=== PATIENT | female | born 1995 ===

== ENCOUNTER 2017-07-09 01:49 | Emergency (ER) | payer SELFPAY ==
[2017-07-09 02:03] VITALS: BP 110/70; PULSE 77; RESP 16; TEMP 98; O2SAT 100
--- NOTE | 2017-07-09 02:59 | ED PDOC ---
HPI: CCC, URI, Sore Throat Time Seen by Provider: 07/09/17 02:01 Chief Complaint (Nursing): ENT Problem Chief Complaint (Provider): Sore Throat History Per: Patient History/Exam Limitations: no limitations Have you had recent travel within the past 21 days to any of the following countries: [place], [place], [place] or [place]?: No Onset/Duration Of Symptoms: Days (4) Current Symptoms Are (Timing): Still Present Location Of Pain: Throat Sick Contacts (Context): None Associated Symptoms: Sore Throat. denies: Fever, Chills, Cough, Sputum, Neck Pain, Sinus Drainage, Myalgias, Nasal Congestion, Nausea, Vomiting, Diarrhea Severity: Moderate Additional History Per: Patient Additional Complaint(s): 21 y/o female complaining of right sided throat pain for the last 4 days. No fever, chills, or other complaint. She reports a history of right sided salivary duct stone years 10 years ago, and would like a referral to ENT. Past Medical History Vital Signs: Last Vital Signs Temp 98.0 F 07/09/17 02:01 Pulse 77 07/09/17 02:01 Resp 16 07/09/17 02:01 BP 110/70 07/09/17 02:01 Pulse Ox 100 07/09/17 02:01 - Medical History PMH: No Chronic Diseases - Surgical History Surgical History: No Surg Hx - Family History Family History: States: Unknown Family Hx - Social History Current smoker - smoking cessation education provided: No Ex-Smoker (has not smoked in the last 12 months): No Alcohol: None Drugs: Denies - Home Medications Home Medications: Ambulatory Orders Medication Instructions Recorded Guaifenesin/Pseudoephedrne HCl 1 tab PO DAILY PRN #30 ter 10/09/14 [Mucinex D 600 mg-60 mg] Ibuprofen [Motrin] 600 mg PO Q6 PRN #10 tab 10/09/14 Benzocaine/Menthol [Cepacol Sore 1 kristine MM DAILY #12 kristine 07/09/17 Throat] Ibuprofen [Motrin Tab] 600 mg PO Q6 #30 tab 07/09/17 - Allergies Allergies/Adverse Reactions: Allergies Allergy/AdvReac Type Severity Reaction Status Date / Time No Known Allergies Allergy Unverified 10/09/14 12:26 Review of Systems ROS Statement: Except As Marked, All Systems Reviewed And Found Negative ENT: Positive for: Throat Pain Physical Exam - Reviewed Nursing Documentation Reviewed: Yes Vital Signs Reviewed: Yes - Physical Exam Appears: Positive for: Well, Non-toxic, No Acute Distress Head Exam: Positive for: ATRAUMATIC, NORMAL INSPECTION, NORMOCEPHALIC Skin: Positive for: Normal Color, Warm, DRY Eye Exam: Positive for: EOMI, Normal appearance, PERRL ENT: Positive for: Normal ENT Inspection Neck: Positive for: Normal, Painless ROM Cardiovascular/Chest: Positive for: Regular Rate, Rhythm Respiratory: Positive for: CNT, Normal Breath Sounds Gastrointestinal/Abdominal: Positive for: Normal Exam, Bowel Sounds, Soft Back: Positive for: Normal Inspection Extremity: Positive for: Normal ROM Neurologic/Psych: Positive for: Alert, Oriented - ECG O2 Sat by Pulse Oximetry: 100 (RA) Pulse Ox Interpretation: Normal Medical Decision Making Medical Decision Making: Impression: 21 y/o female complaining of sore throat Plan: - Rapid Strep - Toradol and Decadron Rapid strep is negative. On reevaluation her pain is improved and she is comfortable going home. Patient given referral for ENT. Scribe Attestation Documented by Roxanne Yu acting as a scribe for Dr. Ray Mei. Provider Attestation: All medical record entries made by the Scribe were at my direction and personally dictated by me. I have reviewed the chart and agree that the record accurately reflects my personal performance of the history, physical exam, medical decision making, and the department course for this patient. I have also personally directed, reviewed, and agree with the discharge instructions and disposition. Disposition - Clinical Impression Clinical Impression: Throat pain - Patient ED Disposition Is Patient to be Admitted: No Doctor Will See Patient In The: Office Counseled Patient/Family Regarding: Studies Performed, Diagnosis, Need For Followup - Disposition Referrals: Brien Hoffmann MD [Staff Provider] - Disposition: Routine/Home Disposition Time: 02:45 Condition: STABLE Prescriptions: Benzocaine/Menthol [Cepacol Sore Throat] 1 kristine MM DAILY #12 kristine Ibuprofen [Motrin Tab] 600 mg PO Q6 #30 tab Instructions: Pharyngitis (ED) Forms: [employer] (Japanese)
== END 2017-07-09 03:02 | disposition home or self-care (01) ==
LOC: H.ER 01:49
DX: J02.9 Acute pharyngitis, unspecified (principal); Z87.891 Personal history of nicotine dependence
CPT/HCPCS: 81025; 87070; 87430; 96372; 99281; J1885; J8540

== ENCOUNTER 2017-10-21 13:07 | Emergency (ER) | payer MEDICAID ==
[2017-10-21 13:16] VITALS: BP 114/69; PULSE 93; RESP 18; TEMP 97; O2SAT 100
[2017-10-21] MEDS ORDERED: Naproxen 500 MG TAB PO STA (13:27)
--- NOTE | 2017-10-21 13:50 | ED PDOC ---
Upper Extremity Pain/Injury Time Seen by Provider: 10/21/17 13:17 Chief Complaint (Nursing): Upper Extremity Problem/Injury Chief Complaint (Provider): Upper Extremity Problem/Injury History Per: Patient History/Exam Limitations: no limitations Onset/Duration Of Symptoms: Days (x2 weeks) Current Symptoms Are (Timing): Still Present Additional Complaint(s): Nikki Jc is a 21 year old right hand dominant female with no significant past medical history, who presents to the ED complaining of left sided shoulder pain x2 weeks. Patient states she was lifting a heavy box at the [employer] where she works when she initially felt the pain. Patient states pain is only present upon movement and lifting objects, and denies any pain at rest. She describes the pain as shock-like and shooting, and notes when she feels it, it feels as though it shoots across her left shoulder blade when lifting heavy objects. She also notes increased pain when turning head to the right. Denies paresthesias. States she continued working the last 2 weeks and took Motrin 2 days ago without relief. LNMP 20 days ago. PMD: Non-CP Provider Past Medical History Reviewed: Historical Data, Nursing Documentation, Vital Signs Vital Signs: Last Vital Signs Temp 97 F L 10/21/17 13:14 Pulse 93 H 10/21/17 13:14 Resp 18 10/21/17 13:14 BP 114/69 10/21/17 13:14 Pulse Ox 100 10/21/17 13:14 - Medical History PMH: No Chronic Diseases - Family History Family History: States: Unknown Family Hx - Home Medications Home Medications: Ambulatory Orders Medication Instructions Recorded Guaifenesin/Pseudoephedrne HCl 1 tab PO DAILY PRN #30 ter 10/09/14 [Mucinex D 600 mg-60 mg] Ibuprofen [Motrin] 600 mg PO Q6 PRN #10 tab 10/09/14 Benzocaine/Menthol [Cepacol Sore 1 kristine MM DAILY #12 kristine 07/09/17 Throat] Ibuprofen [Motrin Tab] 600 mg PO Q6 #30 tab 07/09/17 Cyclobenzaprine [Cyclobenzaprine 5 mg PO TID #15 tab 10/21/17 HCl] Naproxen [Naprosyn] 500 mg PO BID PRN #20 tablet 10/21/17 - Allergies Allergies/Adverse Reactions: Allergies Allergy/AdvReac Type Severity Reaction Status Date / Time No Known Allergies Allergy Verified 10/21/17 13:14 Review of Systems Musculoskeletal: Positive for: Shoulder Pain (left) Neurological: Negative for: Numbness Physical Exam - Reviewed Nursing Documentation Reviewed: Yes Vital Signs Reviewed: Yes - Physical Exam Appears: Positive for: Well, Non-toxic, No Acute Distress Head Exam: Positive for: ATRAUMATIC Skin: Positive for: Normal Color. Negative for: Rash Eye Exam: Positive for: Normal appearance Extremity: Positive for: Normal ROM (Full AROM and PROM of left shoulder, (+) pain with resisted elevation of arm. ), Tenderness (Reproducible point tenderness over left shoulder blade). Negative for: Deformity, Swelling Neurologic/Psych: Positive for: Alert, Oriented (x3) - ECG O2 Sat by Pulse Oximetry: 100 (RA) Pulse Ox Interpretation: Normal Medical Decision Making Medical Decision Making: Time: 13:26 Initial Impression: Shoulder pain, consider muscle strain Plan: --X-Ray Shoulder left --Flexeril 5 mg PO --Naproxen 500 mg PO --Reevaluation Time: 13:49 --Patient refused shoulder X-Ray and medication as she states she needs to leave. --Upon provider evaluation patient is medically stable, and requires no further treatment in the ED at this time. Patient will be discharged home with Rx for Cyclobenzaprine and Naproxen. Counseling was provided and all questions were answered regarding diagnosis and need for follow up with PMD/Clinic, or Dr. Pizarro-Orthopedic. There is agreement to discharge plan. Return if symptoms persist or worsen. Scribe Attestation: Documented by Talat Fitch, acting as a scribe for Marian Diaz PA-C Provider Scribe Attestation: All medical record entries made by the Scribe were at my direction and personally dictated by me. I have reviewed the chart and agree that the record accurately reflects my personal performance of the history, physical exam, medical decision making, and the department course for this patient. I have also personally directed, reviewed, and agree with the discharge instructions and disposition. Disposition - Clinical Impression Clinical Impression: Shoulder pain, left - Patient ED Disposition Is Patient to be Admitted: No Counseled Patient/Family Regarding: Diagnosis, Need For Followup, Rx Given - Disposition Referrals: Km Pizarro MD [Medical Doctor] - [facility] [Outside] Disposition: Routine/Home Disposition Time: 13:49 Condition: STABLE Additional Instructions: Patient advised to avoid strenuous activity and to take medication as prescribed. She was advised to apply heating pad to the area. She was advised to f/u with PMD/Clinic, or Dr. Pizarro-jonathan, and return for any worsening or change in symptoms. Prescriptions: Cyclobenzaprine [Cyclobenzaprine HCl] 5 mg PO TID #15 tab Naproxen [Naprosyn] 500 mg PO BID PRN #20 tablet PRN Reason: Pain, Moderate (4-7) Instructions: Muscle Strain (ED), Musculoskeletal Pain (ED) Forms: [employer] ([place]inyarwanda), [facility] ED School/Work Excuse Print Language: CITIZEN OF [place]
--- NOTE | 2017-10-21 13:55 | ED PDOC ---
Upper Extremity Pain/Injury Time Seen by Provider: 10/21/17 13:17 Chief Complaint (Nursing): Upper Extremity Problem/Injury Chief Complaint (Provider): Upper Extremity Problem/Injury History Per: Patient History/Exam Limitations: no limitations Onset/Duration Of Symptoms: Days (x2 weeks) Current Symptoms Are (Timing): Still Present Additional Complaint(s): Nikki Jc is a 21 year old right hand dominant female with no significant past medical history, who presents to the ED complaining of left sided shoulder pain x2 weeks. Patient states she was lifting a heavy box at the [employer] where she works when the pain began. Patient states pain is only upon movement and lifting. Reports a shock-like pain shooting across her left shoulder blade when lifting heavy, and increased pain when turning head to the right. Denies paresthesias. States she continued working the last 2 weeks and took Motrin 2 days ago without relief. LNMP 20 days ago. PMD: Non-H Provider Past Medical History Reviewed: Historical Data, Nursing Documentation, Vital Signs Vital Signs: Last Vital Signs Temp 97 F L 10/21/17 13:14 Pulse 93 H 10/21/17 13:14 Resp 18 10/21/17 13:14 BP 114/69 10/21/17 13:14 Pulse Ox 100 10/21/17 13:14 - Family History Family History: States: Unknown Family Hx - Home Medications Home Medications: Ambulatory Orders Medication Instructions Recorded Guaifenesin/Pseudoephedrne HCl 1 tab PO DAILY PRN #30 ter 10/09/14 [Mucinex D 600 mg-60 mg] Ibuprofen [Motrin] 600 mg PO Q6 PRN #10 tab 10/09/14 Benzocaine/Menthol [Cepacol Sore 1 kristine MM DAILY #12 kristine 07/09/17 Throat] Ibuprofen [Motrin Tab] 600 mg PO Q6 #30 tab 07/09/17 Cyclobenzaprine [Cyclobenzaprine 5 mg PO TID #15 tab 10/21/17 HCl] Naproxen [Naprosyn] 500 mg PO BID PRN #20 tablet 10/21/17 - Allergies Allergies/Adverse Reactions: Allergies Allergy/AdvReac Type Severity Reaction Status Date / Time No Known Allergies Allergy Verified 10/21/17 13:14 Review of Systems Musculoskeletal: Positive for: Shoulder Pain (left) Neurological: Negative for: Numbness Physical Exam - Reviewed Nursing Documentation Reviewed: Yes Vital Signs Reviewed: Yes - Physical Exam Appears: Positive for: Well, Non-toxic, No Acute Distress Head Exam: Positive for: ATRAUMATIC Skin: Positive for: Normal Color. Negative for: Rash Eye Exam: Positive for: Normal appearance Extremity: Positive for: Normal ROM (Left shoulder. Pain with resisted elevation of arm), Tenderness (Reproducible point tenderness at left shoulder blade) - ECG O2 Sat by Pulse Oximetry: 100 (RA) Pulse Ox Interpretation: Normal Medical Decision Making Medical Decision Making: Time: 13:26 Initial Impression: Shoulder pain, consider muscle strain Plan: --X-Ray Shoulder left --Flexeril 5 mg PO --Naproxen 500 mg PO --Reevaluation Scribe Attestation: Documented by Talat Fitch, acting as a scribe for Marian Diaz PA-C Provider Scribe Attestation: All medical record entries made by the Scribe were at my direction and personally dictated by me. I have reviewed the chart and agree that the record accurately reflects my personal performance of the history, physical exam, medical decision making, and the department course for this patient. I have also personally directed, reviewed, and agree with the discharge instructions and disposition. Disposition - Disposition
== END 2017-10-21 14:00 | disposition home or self-care (01) ==
LOC: H.ER 13:07
DX: M25.512 Pain in left shoulder (principal)